=== PATIENT | female | born 1990 | race Caucasian/White ===

== ENCOUNTER 2019-12-17 20:21 | Emergency (ER) | payer OTHER ==
[~2019-12-17] VITALS: Ht 170.2 cm; Wt 68.0 kg
[2019-12-17 20:38] VITALS: BP 107/45
[2019-12-17] MEDS ORDERED: ALBUTEROL2.5 MG/3 M INH (20:38)
[2019-12-17] MEDS ORDERED: Ipratropium 0.02% Inh Soln 2.5ml UD HHN ONE (21:00)
[2019-12-17] MEDS ORDERED: Albuterol ud Inhalation HHN ONE (21:00)
--- NOTE | 2019-12-17 21:02 | Emergency Room Report ---
History of Present Illness General Chief Complaint: Dyspnea/Respdistress Source: Patient Present Illness HPI Disclaimer: Please note that this report is being documented using [employer] technology. This can lead to erroneous entry secondary to incorrect interpretation by the dictating instrument. HPI: 29-year-old female history of asthma presented with shortness of breath. She states she is feeling short of breath for the past few days. Recently traveled to [place]. Associated cough. No nausea no vomiting no fevers. No sick contacts. She reports 2 recent negative COVID-19 test. She has not had an asthma exacerbation in quite some time she says many years and her medications are currently . PMH: Asthma Allergies: Coded Allergies: No Known Allergies (Unverified , 12/17/19) COVID-19 Screening Contact w/high risk pt: No Experienced COVID-19 symptoms?: No COVID-19 Testing performed REPRESENTATIVE PERSONAL SERVICE: No Patient History Now: No Reviewed Nursing Documentation: PMH: Agreed; PSxH: Agreed Nursing Documentation-PMH Hx Asthma: Yes Review of Systems All Other Systems: negative except mentioned in HPI Physical Exam Vital Signs Date Time Temp Pulse Resp B/P (MAP) Pulse Ox O2 Delivery O2 Flow Rate FiO2 12/17/19 20:28 98.4 85 20 107/45 (65) 96 Room Air Sp02 EP Interpretation: reviewed, normal General Appearance: well appearing, no apparent distress Head: normocephalic, atraumatic Eyes: bilateral eye PERRL, bilateral eye EOMI ENT: hearing grossly normal, moist mucus membranes Neck: full range of motion, supple Respiratory: lungs clear, normal breath sounds, no rhonchi, no respiratory distress, no retraction, no wheezing Cardiovascular #1: normal peripheral pulses, regular rate, rhythm, no murmur Gastrointestinal: non tender, soft, non-distended, no guarding Neurologic: alert, oriented x3, no focal defects Skin: normal color, warm/dry Medical Decision Making Diagnostic Impression: Primary Impression: Asthma exacerbation ER Course MDM: Differential included bronchitis, asthma exacerbation, less likely pneumonia Clinical course-patient had no wheezing on exam but did have a mild cough. Patient requested basic laboratory studies which were sent. COVID testing was sent and was negative. Breathing treatment given, oral steroids given. On my reassessment patient remained in no acute distress. Stable for discharge. Labs -laboratory studies showed no significant abnormalities Plan-discharge home follow-up PMD oral steroids albuterol as needed Last Vital Signs Date Time Temp Pulse Resp B/P (MAP) Pulse Ox O2 Delivery O2 Flow Rate FiO2 12/17/19 20:28 98.4 85 20 107/45 (65) 96 Room Air Disposition: HOME, SELF-CARE Condition: Improved Scripts Prednisone* (PREDNISONE*) 20 Mg Tablet 40 MG ORAL DAILY, #8 TAB Prov: Carroll Ca M.D. 12/17/19 Albuterol Sulfate* (Albuterol Sulfate Hfa*) 8.5 Gm Hfa.aer.ad 2 PUFF INH Q6H, #1 INH Prov: Carroll Ca M.D. 12/17/19 Albuterol Sulfate* (ALBUTEROL SULFATE HHN*) 2.5 Mg/3 Ml Vial.neb 2.5 MG HHN Q6HR PRN for Shortness of Breath, #25 VIAL Prov: Carroll Ca M.D. 12/17/19 Referrals: [facility]ERR[facility] (PCP) Carroll Ca M.D. Dec 17, 2019 21:02
[2019-12-17 21:20] LABS: BASOPHILS % (AUTO) 0.8 % (0.0-2.0); EOSINOPHILS % (AUTO) 1.2 % (0.0-3.0); HEMATOCRIT 38.5 % (37.0-47.0); HEMOGLOBIN 12.9 G/DL (12.0-16.0); LYMPHOCYTES % (AUTO) 28.5 % (20.0-45.0); MEAN CORPUSCULAR VOLUME 100 FL (80-99); MONOCYTES % (AUTO) 6.1 % (1.0-10.0); NEUTROPHILS % (AUTO) 63.5 % (45.0-75.0); PLATELET COUNT 292 K/UL (150-450); RED BLOOD COUNT 3.85 M/UL (4.20-5.40); RED CELL DISTRIBUTION WIDTH 11.4 % (11.6-14.8); WHITE BLOOD COUNT 10.1 K/UL (4.8-10.8)
[2019-12-17] MEDS ORDERED: PREDNISONE20 MG ORAL (21:35)
[2019-12-17] MEDS ORDERED: ALBUTEROL SULF8.5 G1 INH (21:35)
[2019-12-17] MEDS ORDERED: ALBUTEROL2.5 MG/3 M HHN (21:35)
[2019-12-17 21:40] LABS: ANION GAP 9 mmol/L (5-15); BLOOD UREA NITROGEN 8 mg/dL (7-18); CALCIUM 9.1 MG/DL (8.5-10.1); CARBON DIOXIDE 28 MMOL/L (21-32); CHLORIDE 105 MMOL/L (98-107); CREATININE 0.7 MG/DL (0.55-1.30); POTASSIUM 3.3 MMOL/L (3.5-5.1); SODIUM 142 MMOL/L (136-145)
[2019-12-17 21:45] LABS: ALANINE AMINOTRANSFERASE 12 U/L (12-78); ALBUMIN 4.1 G/DL (3.4-5.0); ALBUMIN/GLOBULIN RATIO 1.5 (1.0-2.7); ALKALINE PHOSPHATASE 39 U/L (46-116); ASPARTATE AMINO TRANSFERASE 13 U/L (15-37); BILIRUBIN,TOTAL 0.3 MG/DL (0.2-1.0)
[2019-12-17 21:58] VITALS: BP 121/63
== END 2019-12-17 21:58 | disposition home or self-care (01) ==
LOC: EMR 20:56
DX: J45.901 Unspecified asthma with (acute) exacerbation (principal)
CPT/HCPCS: 36415; 80053; 85025; 94640; J7512; U0002; Z7502; 99284